=== PATIENT | male | born 1985 | race Two or more races ===

== ENCOUNTER 2022-07-07 15:20 | Outpatient (CLI) | payer BC, SELFPAY ==
[2022-07-07 13:19] LABS: Albumin* 4.3 g/dL (3.3-5.0)
[2022-07-07 13:20] LABS: Chloride* 103 mmol/L (96-114); Potassium* 4.8 mmol/L (3.6-5.1); Sodium* 139 mmol/L (135-149)
[2022-07-07 13:22] LABS: Aspartate Amino Transferase* 27 U/L (12-35); Bilirubin Total* 0.4 mg/dL (0.1-1.5); Carbon Dioxide* 29 mmol/L (20-32); Cholesterol* 179 mg/dL (90-199); Creatinine* 1.9 mg/dL (0.5-1.5); Estimated Glomerular Filt Rate 46 ml/min; Total Protein* 7.2 g/dL (6.0-8.3)
[2022-07-07 13:23] LABS: Alanine Aminotransferase* 24 U/L (4-50); Alkaline Phosphatase* 64 U/L (40-150); Blood Urea Nitrogen* 30 mg/dL (5-24); Calcium* 9.1 mg/dL (8.4-10.6); Glucose* 93 mg/dL (60-115); Triglycerides* 77 mg/dL (40-149)
[2022-07-07 13:24] LABS: HDL Cholesterol* 63 mg/dL (>=40); LDL Cholesterol Calculated 101 mg/dL (<100)
== END 2022-07-07 15:21 | disposition home or self-care (01) ==
PROVIDERS: PCP Family Medicine; Visit Provider Family Medicine
DX: Z00.00 Encounter for general adult medical examination without abnormal findings (principal); N18.30 Chronic kidney disease, stage 3 unspecified; I10 Essential (primary) hypertension; K21.9 Gastro-esophageal reflux disease without esophagitis; N05.1 Unspecified nephritic syndrome with focal and segmental glomerular lesions; Z13.6 Encounter for screening for cardiovascular disorders
CPT/HCPCS: 80053; 80061

== ENCOUNTER 2022-09-27 13:34 | Outpatient (CLI) | payer BC, SELFPAY ==
[2022-09-27 14:22] LABS: Iron* 78 ug/dL (49-181)
[2022-09-27 14:26] LABS: Albumin* 4.7 g/dL (3.3-5.0); Chloride* 104 mmol/L (96-114); Sodium* 137 mmol/L (135-149)
[2022-09-27 14:28] LABS: Creatinine* 1.8 mg/dL (0.5-1.5); Estimated Glomerular Filt Rate 49 ml/min
[2022-09-27 14:29] LABS: Blood Urea Nitrogen* 34 mg/dL (5-24); Calcium* 9.3 mg/dL (8.4-10.6); Carbon Dioxide* 27 mmol/L (20-32); Glucose* 87 mg/dL (60-115); Phosphorus* 4.6 mg/dL (2.5-4.5); Uric Acid* 6.8 mg/dL (2.2-8.4)
[2022-09-27 14:32] LABS: Percent Iron Saturation 27 % (20-50); Total Iron Binding Capacity 293 ug/dL (261-462)
[2022-09-27 14:39] LABS: Creatinine Urine 112.8 mg/dL
[2022-09-27 15:40] LABS: Microalbumin Creatinine Ratio 440 mg/g (0-30); Microalbumin Urine 50 mg/dL
== END 2022-09-27 13:35 | disposition home or self-care (01) ==
PROVIDERS: PCP Family Medicine; Visit Provider Internal Medicine Nephrology
DX: N18.30 Chronic kidney disease, stage 3 unspecified (principal); I10 Essential (primary) hypertension
CPT/HCPCS: 80069; 82043; 82570; 82728; 83540; 83550; 84550

== ENCOUNTER 2023-07-12 07:35 | Outpatient (CLI) | payer BC, SELFPAY | END 2023-07-12 07:36 | disposition home or self-care (01) | LOC: NFLDREF 07-13 06:42 | PROVIDERS: PCP Physician Assistant Medical; Referring Provider Physician Assistant Medical; Visit Provider Internal Medicine Nephrology | DX: I10 Essential (primary) hypertension (principal); N18.30 Chronic kidney disease, stage 3 unspecified; R80.9 Proteinuria, unspecified; M10.9 Gout, unspecified | CPT/HCPCS: 80061; 80069; 82043; 82570; 84450; 84460; 84550 ==

== ENCOUNTER 2024-01-29 07:47 | Outpatient (CLI) | payer BC, SELFPAY | END 2024-01-29 07:48 | disposition home or self-care (01) | LOC: NFLDREF 01-30 07:16 | PROVIDERS: PCP Physician Assistant Medical; Referring Provider Physician Assistant Medical; Visit Provider Internal Medicine Nephrology | DX: I10 Essential (primary) hypertension (principal); N05.1 Unspecified nephritic syndrome with focal and segmental glomerular lesions; N18.30 Chronic kidney disease, stage 3 unspecified | CPT/HCPCS: 80061; 80069; 82043; 82570; 82728; 83540; 83550; 84550; 87086 ==

== ENCOUNTER 2024-06-26 08:10 | Outpatient (CLI) | payer BC, SELFPAY | END 2024-06-26 08:11 | disposition home or self-care (01) | LOC: NFLDREF 06-27 11:26 | PROVIDERS: PCP Physician Assistant Medical; Referring Provider Physician Assistant Medical; Visit Provider Internal Medicine Nephrology | DX: N18.30 Chronic kidney disease, stage 3 unspecified (principal) | CPT/HCPCS: 80069; 82043; 82570; 87086 ==

== ENCOUNTER 2025-01-08 07:40 | Outpatient (CLI) | payer BC, SELFPAY | END 2025-01-08 07:41 | disposition home or self-care (01) | LOC: NFLDREF 01-09 09:29 | PROVIDERS: PCP Physician Assistant Medical; Referring Provider Physician Assistant Medical; Visit Provider Internal Medicine Nephrology | DX: N18.31 Chronic kidney disease, stage 3a (principal); I10 Essential (primary) hypertension; N05.1 Unspecified nephritic syndrome with focal and segmental glomerular lesions | CPT/HCPCS: 80069; 82043; 82570; 82728; 83540; 83550; 83970; 84550; 86140 ==

== ENCOUNTER 2025-07-17 07:37 | Outpatient (CLI) | payer BC, SELFPAY | END 2025-07-17 07:38 | disposition home or self-care (01) | LOC: NFLDREF 07-22 10:15 | PROVIDERS: PCP Physician Assistant Medical; Referring Provider Physician Assistant Medical; Visit Provider Internal Medicine Nephrology | DX: I12.9 Hypertensive chronic kidney disease with stage 1 through stage 4 chronic kidney disease, or unspecified chronic kidney disease (principal); N18.31 Chronic kidney disease, stage 3a; R80.9 Proteinuria, unspecified | CPT/HCPCS: 80061; 80069; 82043; 82570; 83970; 84550; 86140 ==